=== PATIENT | female | born 1945 | race Caucasian/White ===

== ENCOUNTER 2021-11-17 13:56 | Outpatient (CLI) | payer MEDICARE, BC | END 2021-11-17 13:57 | disposition home or self-care (01) | LOC: SCSMRI 13:56 | PROVIDERS: ATTEND Orthopaedic Surgery | DX: M43.12 Spondylolisthesis, cervical region (principal); M48.02 Spinal stenosis, cervical region | CPT/HCPCS: 72141 ==

== ENCOUNTER 2022-01-23 14:24 | Outpatient (CLI) | payer MEDICARE, BC | END 2022-01-23 14:25 | disposition home or self-care (01) | LOC: BICULT 14:24 | PROVIDERS: ATTEND Internal Medicine Nephrology | DX: N18.4 Chronic kidney disease, stage 4 (severe) (principal) | CPT/HCPCS: 76770 ==

== ENCOUNTER 2022-03-16 09:04 | Outpatient (CLI) | payer MEDICARE, BC | END 2022-03-16 09:05 | disposition home or self-care (01) | LOC: RAD 09:04 | PROVIDERS: ATTEND Internal Medicine Critical Care Medicine | DX: R06.00 Dyspnea, unspecified (principal); M51.16 Intervertebral disc disorders with radiculopathy, lumbar region; M54.12 Radiculopathy, cervical region; G90.523 Complex regional pain syndrome I of lower limb, bilateral; M96.1 Postlaminectomy syndrome, not elsewhere classified; M70.62 Trochanteric bursitis, left hip; M47.816 Spondylosis without myelopathy or radiculopathy, lumbar region; M99.83 Other biomechanical lesions of lumbar region; M47.817 Spondylosis without myelopathy or radiculopathy, lumbosacral region; Z79.899 Other long term (current) drug therapy; M25.572 Pain in left ankle and joints of left foot; M54.2 Cervicalgia; R21 Rash and other nonspecific skin eruption | CPT/HCPCS: 71046 ==